=== PATIENT | male | born 1955 | race Caucasian/White ===

== ENCOUNTER → 2016-11-10 | Outpatient (CLI) | payer MEDICARE ==
[~2016-11-10] VITALS: Ht 172.7 cm; Wt 125.0 kg
[~2016-11-10] MED LIST: ADVIL200 MG PO; ANORO IH; CARBOPLATIN IV; CIPRO 500MG TA500 MG PO; DUREZOL 5 ML5 ML OP; ENBREL50 MG/ML SC; FLEXERIL 1010 MG/TAB PO; HCTZ 25MG TAB25 MG PO; LEVAQUIN 5500 MG/TA1 PO; LEXAPRO 10MG10 MG PO; LORTAB 5/500 501 TAB PO; NORCO 325 MG-51 TAB PO; PERCOCET 325 MG1 TA2 PO; PREDNISONE 5MG5 MG PO; PREDNISONE10 MG PO; PREDNISONE20 MG PO; PREVACID 30MG30 M1 PO; PRINIVIL10 MG PO; RT SPIRIVA18 MCG IH; SENOKOT S 50 MG1 TAB PO; TAXOL30 IV; TIZANIDINE2 MG PO; ULTRAM 50MG TAB50 MG PO; VOLTAREN1% TP; XOPENEX0.63 MG/3 IH; ZOFRAN ODT4 MG PO; ZOFRAN8 MG PO; [UNRECOGNIZED DRUG - OTHER] IV
[2016-11-10 12:14] VITALS: PULSE 61
[2016-11-10 13:37] VITALS: BP 105/59; PULSE 73
[2016-11-10 13:43] LABS: PLEURAL FLUID - PMN 0.5 % (0-25)
[2016-11-10 15:15] LABS: PLEURAL FLUID RIGHT SIDE; PLEURAL FLUID APPEARANCE HAZY; PLEURAL FLUID COLOR YELLOW
== END ==
LOC: COL.RAD 11:53
PROVIDERS: Internal Medicine
DX: J90 Pleural effusion, not elsewhere classified (principal)
CPT/HCPCS: 19804

== ENCOUNTER 2017-08-03 07:47 | Day surgery (SDC) | payer MEDICARE ==
[~2017-08-03] VITALS: Ht 172.7 cm; Wt 129.4 kg
[~2017-08-03 07:47] MED LIST changes: -DUREZOL 5 ML5 ML OP; +DUREZOL 5 ML5 ML OU; +XOPENEX HF0.045 MG/A IH; -XOPENEX0.63 MG/3 IH
[2017-08-03] MEDS ORDERED: ULTRAM 50MG TAB50 MG PO (08:10)
[2017-08-03] MEDS ORDERED: OMNIPRED 5 ML5 ML OU (08:13)
[2017-08-03] MEDS ORDERED: NORCO 325 MG-51 TAB PO (08:14)
[2017-08-03] MEDS ORDERED: CYCLOGYL 1%2 ML/BOT OU (08:20)
[2017-08-03] MEDS ORDERED: TYLENOL 8 HR PO (08:22)
[2017-08-03] MEDS ORDERED: DULCOLAX STOOL100 MG PO (08:23)
[2017-08-03 08:32] VITALS: BP 129/67; PULSE 80; TEMP 98.2
[2017-08-03 09:55] VITALS: BP 117/68; PULSE 70
[2017-08-03 10:00] VITALS: BP 108/71; PULSE 69
[2017-08-03 10:15] VITALS: BP 125/68; PULSE 64
[2017-08-03 10:30] VITALS: BP 116/67; PULSE 64
[2017-08-03 12:11] VITALS: BP 121/75; PULSE 67
== END 2017-08-03 10:45 | disposition home or self-care (01) ==
LOC: SDCO 07:47
DX: D12.5 Benign neoplasm of sigmoid colon (principal); K64.0 First degree hemorrhoids; K92.1 Melena; Z80.0 Family history of malignant neoplasm of digestive organs; I27.20 Pulmonary hypertension, unspecified; C34.91 Malignant neoplasm of unspecified part of right bronchus or lung; C91.11 Chronic lymphocytic leukemia of B-cell type in remission; J44.9 Chronic obstructive pulmonary disease, unspecified; K21.9 Gastro-esophageal reflux disease without esophagitis; I35.1 Nonrheumatic aortic (valve) insufficiency; Z88.0 Allergy status to penicillin; Z88.1 Allergy status to other antibiotic agents; G47.33 Obstructive sleep apnea (adult) (pediatric); D64.9 Anemia, unspecified
CPT/HCPCS: OP; J2704; J7120

== ENCOUNTER → 2018-03-02 | Outpatient (CLI) | payer MEDICARE ==
[~2018-03-02] MED LIST changes: +CYCLOGYL 1%2 ML/BOT OU; +DULCOLAX STOOL100 MG PO; +OMNIPRED 5 ML5 ML OU; +TYLENOL 8 HR PO
== END ==
LOC: COL.RAD 08:41
DX: R42 Dizziness and giddiness (principal)

== ENCOUNTER → 2018-03-21 | Outpatient (CLI) | payer MEDICARE ==
[~2018-03-21] VITALS: Ht 172.7 cm; Wt 129.6 kg
[~2018-03-21] MED LIST changes: +FOSAMAX 70MG TA70 MG PO
[2018-03-21 09:36] VITALS: BP 131/75; PULSE 88
== END ==
LOC: COL.RAD 09:18
DX: R42 Dizziness and giddiness (principal); Z53.8 Procedure and treatment not carried out for other reasons
CPT/HCPCS: J1100; J2405; J2704; J3010

== ENCOUNTER → 2018-03-22 | Outpatient (CLI) | payer MEDICARE | LOC: COL.PUL 10:57 | DX: R06.02 Shortness of breath (principal); M45.9 Ankylosing spondylitis of unspecified sites in spine; Z87.891 Personal history of nicotine dependence; Z85.118 Personal history of other malignant neoplasm of bronchus and lung ==

== ENCOUNTER → 2019-02-08 | Outpatient (CLI) | payer MEDICARE | LOC: COL.VAS 13:35 | DX: I27.0 Primary pulmonary hypertension (principal); I35.1 Nonrheumatic aortic (valve) insufficiency; I51.7 Cardiomegaly ==

== ENCOUNTER 2021-01-05 09:26 | Inpatient (IN) | payer MEDICARE ==
[2021-01-05] VITALS (368 sets, daily range): BP systolic 129–137; BP diastolic 70–86; PULSE 90–108; TEMP 99.1–100.4; O2SAT 76–100
[~2021-01-05] VITALS: Ht 172.7 cm; Wt 138.2 kg
[~2021-01-05 09:26] MED LIST changes: -PREDNISONE 5MG5 MG PO
[2021-01-05 10:19] LABS: COLLECTION METHOD CLEAN CATCH
[2021-01-05 10:25] LABS: BASO % 0.2 % (0.0-2.0); GRAN # 3.3 (1.4-6.5); GRAN % 64.6 % (42.2-75.2); HEMATOCRIT 38.7 % (42.0-52.0); HEMOGLOBIN 12.9 g/dl (13.5-18.0); LYMPH # 1.4 (1.2-3.4); LYMPH % 27.5 % (20.0-51.0); MEAN CELL VOLUME 101 fl (80.0-100.0); MEAN CORPUSCULAR HEMOGLOBIN 34 pg (27.0-31.0); MEAN CORPUSCULAR HGB CONC 33 g/dl (33.0-37.0); MEAN PLATELET VOLUME 10.4 fl (7.4-10.4); MONO # 0.4 (0.1-0.6); MONO % 7.1 % (1.7-9.3); PLATELET COUNT 102 K/mm3 (130-400); RED BLOOD COUNT 3.85 M/mm3 (4.20-5.60); REDCELL DISTRIBUTION WIDTH-CV 16.2 % (11.5-14.5)
[2021-01-05 10:27] LABS: MUCOUS Present /lpf; PH 5 (5-8); SQUAMOUS EPITHELIAL 0-2 /hpf; URINE APPEARANCE Hazy; URINE BACTERIA Rare /hpf; URINE BILIRUBIN Negative (NEGATIVE); URINE BLOOD Negative (NEGATIVE); URINE COLOR Yellow; URINE GLUCOSE Negative (NEGATIVE); URINE KETONE Negative (NEGATIVE); URINE LEUKOCYTE ESTERASE Negative (NEGATIVE); URINE NITRATE Negative (NEGATIVE); URINE PROTEIN(semi-quant) 1+ (NEGATIVE); URINE RBC 0-2 /hpf; URINE UROBILINOGEN Negative (NEGATIVE)
[2021-01-05 10:37] LABS: ALBUMIN 3.5 gm/dL (3.5-5.0); BILIRUBIN,TOTAL 1.2 mg/dL (0.0-1.0); CALCIUM 8.4 mg/dL (8.4-10.2); CREATININE, serum 0.94 (0.66-1.25); POTASSIUM 3.9 mmol/L (3.4-5.0); TOTAL PROTEIN 6.2 gm/dL (6.4-8.2)
[2021-01-05 11:03] LABS: ARTERIAL BLD GAS O2 SATURATION 97.7 % (92-100); ARTERIAL BLD GAS TCO2 CT 25.8; ARTERIAL BLOOD GAS BASE EXCESS 1.2 (-2-2); ARTERIAL BLOOD GAS HCO3 24.7 meq/L (22-26); ARTERIAL BLOOD GAS PCO2 35.8 mmHg (35-45); ARTERIAL BLOOD GAS PO2 99.8 mmHg (80-100); ARTERIAL BLOOD GAS pH 7.46 (7.35-7.45)
[2021-01-05 14:04] LABS: ARTERIAL BLD GAS O2 SATURATION 98.6 % (92-100); ARTERIAL BLD GAS TCO2 CT 24.2; ARTERIAL BLOOD GAS BASE EXCESS 0.1 (-2-2); ARTERIAL BLOOD GAS HCO3 23.2 meq/L (22-26); ARTERIAL BLOOD GAS PCO2 32.7 mmHg (35-45); ARTERIAL BLOOD GAS pH 7.47 (7.35-7.45)
[2021-01-05 14:05] LABS: ARTERIAL BLOOD GAS PO2 123.5 mmHg (80-100)
[2021-01-05 15:45] LABS: INR 1.5 (0.8-3.0); PROTHROMBIN TIME 16.2 SECONDS (9.7-12.8)
[2021-01-05 15:47] LABS: CREATININE, serum 0.93 (0.66-1.25); PARTIAL THROMBOPLASTIN TIME 28.6 SECONDS (26.0-37.0); POTASSIUM 3.7 mmol/L (3.4-5.0)
[2021-01-05 16:21] LABS: C-REACTIVE PROTEIN 14.9 mg/dL (0.0-0.9)
--- NOTE | 2021-01-05 18:19 | NUR ---
Pt. admitted to ICU Bed 8. Pt. alert and able to answer where he is and accurately state the month and year. The pt. is restless and frequently repositions, looking for his phone, etc. The pt. needs to be reoriented to remind him he needs to stay in bed to conserve energy for his breathing. The pt. was able to take his PO pills and be redirected. Bed alarm on and call light in reach for safety. Mere called on the phone, this RN reports she will call her back to give her an update. IV antibiotics and PO medications administered per order. Pt. denies pain, but reports changing positions and laying on his side makes him feel more comfortable. Because of this, this RN has frequently been rounding to make sure pt. has his belongings in reach and needs are assessed.
[2021-01-05] MEDS ORDERED: NEURONTIN300 MG/CAP (18:45)
[2021-01-05] MEDS ORDERED: FLOMAX 0.40.4 MG/CAP PO (18:47)
--- NOTE | 2021-01-05 18:48 | NUR ---
Pt.'s Kendal notified on the phone pt.'s update per pt. request. Kendal goes by Gayathri. Her number is [phone]. Medications reviewed. Will contact night provider to get new medications ordered.
--- NOTE | 2021-01-05 18:50 | NUR ---
Pt.'s Gayathri reports pt was vaccinated with the Moderna Vaccine on 08/02/20. The second dose of the vaccine was 08/02/20.
--- NOTE | 2021-01-05 18:54 | NUR ---
Pt. was noted to have a macerated/excoriated L and R groin area. Pt.'s reports they normallu use a diaper rash cream at home. MIGEL Julio notified about pt.'s medication list as well as cream. Nori reports she will put new orders in.
[2021-01-06] VITALS (73 sets, daily range): BP systolic 112–180; BP diastolic 56–74; PULSE 71–87; TEMP 97–98.3; O2SAT 82–100
--- NOTE | 2021-01-06 02:03 | NUR ---
PT TRANSFERRRED TO MEDICAL FLOOR VIA BED BY MEDICAL STAFF AND THIS NURSE AT 0200 HOURS. PT TRANSPORTED ON 12L OXYMASK, PT ABLE TO AMBULATE TO BED, ALL BELONGINGS REMAINED WITH PT.
--- NOTE | 2021-01-06 02:05 | NUR ---
Transferred from ICU to medical bed- Awake, alert, oriented x3, VSS, on 12 L/oxymask, sats 98%, resting, denies pain, Cordero to DD with blood tinged urine. IV fluids of NS at 50cc/hr, Tele on, call light in reach. Has rash/redness to groin. Bilateral lower ext edema. Lung sounds coarse,decreased in the bases.
--- NOTE | 2021-01-06 06:16 | NUR ---
Quiet night- VSS, has been sleeping soundly since coming up from ICU, 250cc ambur/tea colred urine emptied from Cordero at this time, o2 sats 97-99% on 12L/oxymask.
--- NOTE | 2021-01-06 09:12 | NUR ---
The patient is COVID positive. SW contacted the patient's , Kendal (ph#[phone]), to discuss discharge plan. The patient lives in [place] with his . Kendal reports that the patient needs assistance with his ADLs and that he has a cane, walker, and a portable concentrator from [facility]. She reports that she assists the patient with his ADLs. The patient's PCP is Dr. Agata Thompson and he receives his medications from [facility]. Kendal reports no difficulties obtaining his meds. Kendal reports that the patient does not have a DPOA-HC. Plan is to return home with his upon discharge. SW discussed home health services and it's benefits. Kendal reports that she would like to see how the patient does, before deciding on any services. The patient is currently on 8 liters of oxygen. SW to continue to follow. *Discharge plan: home with *
--- NOTE | 2021-01-06 09:19 | NUR ---
Pt assessment complete. Pt is sitting up attempting to eat breakfast, he is A/O x4. Pleasant with cares. Breathing is even and unlabored but has some dyspnea with talking and eating. Currently on 8L O2 via Hiflo cannula. Reports pain to R hip, worse with movement. PRN Motrin administered. Consuelo VILLALOBOS. IVF infusing without issues. No needs at this time. Call light within reach.
--- NOTE | 2021-01-06 19:28 | NUR ---
Pt had uneventful day, sat up in the recliner for most of the afternoon. Reports hip pain with movement. Dark urine present to pearce. Pt remained A/O and pleasant through the day. POC discussed with him. No needs at this time. Call light within reach.
--- NOTE | 2021-01-06 21:42 | NUR ---
Assessment completed, alert and oriented. BP is highr for patient just got up from the BR. Denies pain or SOB. Her is on 5L which is his baseline. His upper and lower extremities is swollen a little bit otherwise he is back to reclining chair comfortably sitting. He said that he have hx of sleep apnea and requesting if can get cpap for him. RT is at bedside and said that she will come back for bipap and will put him with that. Patient agreed the plan. Call light is within reach and will continue to follow.
[2021-01-07 04:30] VITALS: BP 135/65; PULSE 68; TEMP 97.7
[2021-01-07 08:03] VITALS: BP 138/59; PULSE 70; TEMP 97.5
[2021-01-07 12:14] LABS: COLLECTION METHOD IN
[2021-01-07 12:26] LABS: MUCOUS Present /lpf; PH 5 (5-8); SQUAMOUS EPITHELIAL None Seen /hpf; URINE APPEARANCE Cloudy; URINE BACTERIA None Seen /hpf; URINE BILIRUBIN Negative (NEGATIVE); URINE BLOOD 3+ (NEGATIVE); URINE COLOR Red; URINE GLUCOSE 3+ (NEGATIVE); URINE KETONE Negative (NEGATIVE); URINE LEUKOCYTE ESTERASE Negative (NEGATIVE); URINE NITRATE Negative (NEGATIVE); URINE PROTEIN(semi-quant) 2+ (NEGATIVE); URINE RBC >50 /hpf; URINE UROBILINOGEN Negative (NEGATIVE)
[2021-01-07 12:57] VITALS: BP 161/85; PULSE 74; TEMP 98.5
[2021-01-07 16:44] VITALS: BP 145/58; PULSE 74; TEMP 975
--- NOTE | 2021-01-07 19:36 | NUR ---
Pt had uneventful day, sat up in the recliner for a majority of it. He remained A/O x4, pleasant and cooperative with cares. Breathing improved, currently on 5L O2 via NC. Consuelo DD, urine has become more bloody, Dr. Jolly aware. INT to left FA removed d/t infiltration. Has a patent R hand INT. No needs at this time. Call light within reach.
[2021-01-07 19:52] VITALS: BP 147/68; PULSE 67; TEMP 97.5
--- NOTE | 2021-01-07 23:23 | NUR ---
ALERT AND OX3. 5LITER N/C. DENIES SOA EXCEPT WHEN AMBULATING. BOOGIE CATH WITH BLOODY DRAINAGE. RT HAND IV FLUSHED. PM MEDS GIVEN. POC DISCUSSED. SETTING UP IN RECLINER, WILL CALL OUT WHEN GOING TO BED. CALL LIGHT WI REACH. NEEDS MET.
[2021-01-07 23:25] VITALS: BP 149/65; PULSE 65; TEMP 97.7
[2021-01-08 05:00] VITALS: BP 146/71; PULSE 80
--- NOTE | 2021-01-08 05:28 | NUR ---
SLEPT THROUGH THE NIGHT WITHOUT INCIDENT. NEEDS MET.
[2021-01-08 08:16] LABS: GRAN # 3.6 (1.4-6.5); GRAN % 71.7 % (42.2-75.2); HEMATOCRIT 38.1 % (42.0-52.0); HEMOGLOBIN 12.5 g/dl (13.5-18.0); LYMPH # 1.1 (1.2-3.4); LYMPH % 22.6 % (20.0-51.0); MEAN CELL VOLUME 101 fl (80.0-100.0); MEAN CORPUSCULAR HEMOGLOBIN 33 pg (27.0-31.0); MEAN CORPUSCULAR HGB CONC 33 g/dl (33.0-37.0); MEAN PLATELET VOLUME 10.1 fl (7.4-10.4); MONO # 0.3 (0.1-0.6); MONO % 5.3 % (1.7-9.3); PLATELET COUNT 106 K/mm3 (130-400); RED BLOOD COUNT 3.79 M/mm3 (4.20-5.60); REDCELL DISTRIBUTION WIDTH-CV 15.7 % (11.5-14.5)
[2021-01-08 08:22] VITALS: BP 136/62; PULSE 66; TEMP 97.9
[2021-01-08 12:28] VITALS: BP 120/68; PULSE 72; TEMP 97.6
[2021-01-08 16:21] VITALS: BP 134/63; PULSE 73; TEMP 98.6
--- NOTE | 2021-01-08 18:55 | NUR ---
PT HAS BEEN TITRATED DOWN TO 1L NC, HOWEVER WITH AMBULATION HE DESATS SIGNIFICANTLY. REPORT GIVEN TO PATRICIO QUAN TO TURN O2 UP TO 3L FOR AMBULATION AND THEN BACK DOWN TO 1L WHEN SEDENTARY. NO FURTHER CONCERNS.
[2021-01-08 21:10] VITALS: BP 136/60; PULSE 94; TEMP 98
--- NOTE | 2021-01-08 23:09 | NUR ---
ALERT ANDOX3. FEELING BETTER TODAY. O2 DOWN TO 1 LITER UNLESS UP AMBULATING NEEDING 2LITER TO RECOVER. DENIES PAIN AT SHIFT ASSESS OR MILD JUST HAD TYLENOL. BOOGIE INTACT TO DD. BLOODY TEA COLORED DRAINAGE. PM MEDS GIVEN. POC DISCUSSED.
[2021-01-09 00:35] VITALS: BP 133/69; PULSE 77; TEMP 97.7
[2021-01-09 04:49] VITALS: BP 134/52; PULSE 70; TEMP 98
--- NOTE | 2021-01-09 05:41 | NUR ---
RESTED THROUGH THE NIGHT WITHOUT INCIDENT. UP IN RECLINER ABOUT 430 THIS AM. CATH LEAKING A LITTE AROUND TIP WHEN PT COUGHING HARD. TYL GIVEN FOR BACK PAIN THIS AM. FRESH COFFEE, NEEDS MET.
--- NOTE | 2021-01-09 06:54 | NUR ---
PT UP IN RECLINER AT THIS TIME. DENIES ANY CURRENT NEEDS. BREAKFAST ORDERED.
[2021-01-09 08:36] VITALS: BP 129/56; PULSE 66; TEMP 97.9
[2021-01-09] MEDS ORDERED: ALA-CORT1% TP (09:21)
[2021-01-09] MEDS ORDERED: DECADRON 4MG TAB4 MG PO (09:24)
[2021-01-09] MEDS ORDERED: TYLENOL 325MG325 MG PO (09:25)
[2021-01-09] MEDS ORDERED: PROAIR HFA0.09 MG/AC IH (09:26)
[2021-01-09] MEDS ORDERED: RT Albuterol HFA MDI IH (09:26)
[2021-01-09] MEDS ORDERED: OXYGEN (09:34)
--- NOTE | 2021-01-09 09:52 | NUR ---
RT notified SW that the patient qualified for 3 liters of oxygen and that the patient informed her that he already has a portable concentrator from [facility]. SW contacted the patient's , Kendal, to update on the above. Kendal confirms that the patient already has a portable concentrator from [facility] and that she will bring it up here for the patient to transport home on. She would like to get the rest of the patient's equipment from [facility]. SW read the IM form outloud to Kendal. Kendal verbalized understanding and gave SW approval to sign the form on her behalf. SW contacted and faxed and emailed the patient's information to Jenniffer at [facility]. Jenniffer confirms that the patient is a client of theirs. SW informed Jenniffer that the patient has a portable concentrator to get home on. SW updated the patient's RN on the above. The patient is to discharge back home with his today, 01/09. No additional needs at this time.
[2021-01-09] MEDS ORDERED: PREDNISONE 5MG5 MG PO (12:43)
--- NOTE | 2021-01-09 13:13 | NUR ---
PT IS SITTING IN RECLINER, BOOGIE HAS BEEN REMOVED. PT HAS VOIDED 150ML SINCE REMOVAL LESS THAN AN HOUR AGO. PT STATES IT HASNT BEEN DIFFICULT AT ALL. THERE IS STILL SOME HEMATURIA, HOWEVER IT SEEMS TO BE REDUCING, AND COLOR IS CHANGING BACK TO THE TEA COLORED URINE. PT IS DRESSED AND READY FOR DISCHARGE, PATIENT'S WILL BE TAKING HIM HOME, AND WILL CALL WHEN HE IS READY TO GO.
--- NOTE | 2021-01-13 16:39 | NUR ---
fiber glass worker contacted spouse, Kendal [phone], and offered emotional support. Kendal states patient does not have advance directives and she was able to speak to him today via telephone. Patient's primary care provider is Dr Guerrero Thompson. Worker advised that we will stay in touch with her and she verbalized comfort that she can talk to nurses daily.
== END 2021-01-09 13:55 | disposition home or self-care (01) | DRG 177 ==
LOC: COL.ER 09:26 → MEDICAL 12:06 → ICU 15:04 → MEDICAL 01-06 01:15
PROVIDERS: Family Medicine; ADMIT Internal Medicine
PROC: XW033E5 Introduction of Remdesivir Anti-infective into Peripheral Vein, Percutaneous Approach, New Technology Group 5 (ICD-10-PCS; principal; 2021-01-07)
DX: U07.1 COVID-19 (principal); J12.82 Pneumonia due to coronavirus disease 2019; J96.01 Acute respiratory failure with hypoxia; Z68.42 Body mass index [BMI] 45.0-49.9, adult; K21.9 Gastro-esophageal reflux disease without esophagitis; R31.9 Hematuria, unspecified; I10 Essential (primary) hypertension; F41.1 Generalized anxiety disorder; M45.9 Ankylosing spondylitis of unspecified sites in spine; M81.0 Age-related osteoporosis without current pathological fracture; T38.0X5A Adverse effect of glucocorticoids and synthetic analogues, initial encounter; Z85.118 Personal history of other malignant neoplasm of bronchus and lung; E66.9 Obesity, unspecified; Z87.891 Personal history of nicotine dependence
CPT/HCPCS: 99222-AI; 99232-AI; 99239; J0456; J0696; J1200; J1630; J1650; J2060; J2250; J7030; J7050; J7120; J7512; J8540; Q9967

== ENCOUNTER 2021-01-12 10:01 | Inpatient (IN) | payer MEDICARE ==
[2021-01-12] VITALS (334 sets, daily range): BP systolic 110–127; BP diastolic 56–68; PULSE 65–94; TEMP 97.8–100; O2SAT 85–100
[~2021-01-12] VITALS: Ht 172.7 cm; Wt 135.8 kg
[~2021-01-12 10:01] MED LIST changes: +ALA-CORT1% TP; +DECADRON 4MG TAB4 MG PO; +FLOMAX 0.40.4 MG/CAP PO; +NEURONTIN300 MG/CAP; +OXYGEN; +PREDNISONE 5MG5 MG PO; +PROAIR HFA0.09 MG/AC IH; +RT Albuterol HFA MDI IH; +TYLENOL 325MG325 MG PO
[2021-01-12 10:18] LABS: ARTERIAL BLD GAS O2 SATURATION 83.3 % (92-100); ARTERIAL BLD GAS TCO2 CT 25.2; ARTERIAL BLOOD GAS BASE EXCESS -2.5 (-2-2); ARTERIAL BLOOD GAS HCO3 23.8 meq/L (22-26); ARTERIAL BLOOD GAS PCO2 46.2 mmHg (35-45); ARTERIAL BLOOD GAS PO2 49.1 mmHg (80-100); ARTERIAL BLOOD GAS pH 7.33 (7.35-7.45)
[2021-01-12 10:21] LABS: HEMATOCRIT 46.1 % (42.0-52.0); HEMOGLOBIN 14.9 g/dl (13.5-18.0); MEAN CELL VOLUME 102 fl (80.0-100.0); MEAN CORPUSCULAR HEMOGLOBIN 33 pg (27.0-31.0); MEAN CORPUSCULAR HGB CONC 32 g/dl (33.0-37.0); MEAN PLATELET VOLUME 10.7 fl (7.4-10.4); PLATELET COUNT 319 K/mm3 (130-400); RED BLOOD COUNT 4.51 M/mm3 (4.20-5.60); REDCELL DISTRIBUTION WIDTH-CV 16.2 % (11.5-14.5)
[2021-01-12 10:33] LABS: ALANINE AMINOTRANSFERASE 70 U/L (4-49); ALBUMIN 3.9 gm/dL (3.5-5.0); ALKALINE PHOSPHATASE 65 U/L (50-136); ANION GAP 15 mmol/L (7-16); AST,SGOT 51 U/L (15-37); BILIRUBIN,TOTAL 1.4 mg/dL (0.0-1.0); BLOOD UREA NITROGEN 27 mg/dL (9-20); CALCIUM 8.7 mg/dL (8.4-10.2); CARBON DIOXIDE 25 mmol/L (22-30); CHLORIDE 95 mmol/L (98-107); CREATININE, serum 0.88 (0.66-1.25); GLUCOSE 235 mg/dL (74-106); POTASSIUM 3.9 mmol/L (3.4-5.0); SODIUM 136 mmol/L (137-145); TOTAL PROTEIN 6.7 gm/dL (6.4-8.2)
[2021-01-12 10:46] LABS: TROPONIN-I < 0.012 ng/mL (0.000-0.035)
[2021-01-12 11:03] LABS: INR 1.2 (0.8-3.0); PROTHROMBIN TIME 13.6 SECONDS (9.7-12.8)
[2021-01-12 11:12] LABS: BAND 1 % (0-10); LYMPHOCYTE 24 % (20.0-51.0); NEUTROPHILS 70 % (42.0-75.2); NUCLEATED RED BLOOD CELL 1 (0-6)
[2021-01-12 11:13] LABS: ANISOCYTOSIS 1+; HYPOCHROMIA 1+; PLATELET ESTIMATE NORMAL (NORMAL)
[2021-01-12 11:35] LABS: COLLECTION METHOD CLEAN CATCH
--- NOTE | 2021-01-12 11:40 | NUR ---
PT ADMITTED FROM ED WITH RESPIRATORY FAILURE D/T COVID. PT IS ORIENTED BUT SLEEPY. PT TRANSFERED TO BED FROM [facility]. PT ON BIPAP AT 100%. PT IS ST ON TELE. BP WNL. PT HAS SLIGHT TEMP OF 100. VANC RUNNING. LABS DRAWN. PT STATES HE FEELS BETTER. BEDSIDE.
[2021-01-12 11:48] LABS: MUCOUS Present /lpf; PH 5 (5-8); SQUAMOUS EPITHELIAL 0-2 /hpf; URINE APPEARANCE Hazy; URINE BACTERIA Rare /hpf; URINE BILIRUBIN Negative (NEGATIVE); URINE BLOOD 3+ (NEGATIVE); URINE COLOR Yellow; URINE GLUCOSE 2+ (NEGATIVE); URINE KETONE Negative (NEGATIVE); URINE LEUKOCYTE ESTERASE Negative (NEGATIVE); URINE NITRATE Negative (NEGATIVE); URINE PROTEIN(semi-quant) 1+ (NEGATIVE); URINE RBC >50 /hpf; URINE UROBILINOGEN Negative (NEGATIVE)
--- NOTE | 2021-01-12 12:36 | NUR ---
NOTIFIED OF D-DIMER GREATER THAN 3000.
--- NOTE | 2021-01-12 16:02 | NUR ---
PT APPEARS ANXIOUS AND REQUESTING TO MOVE MASK. PT REPOSITIONED AND EDUCATED ON IMPORTANCE OF WEARING HIS BIPAP. CALLED REGARDING ANXIETY AND INSTRUCTED TO CALL . CALLED AND ORDER RECEIVED FOR PRECEDEX DRIP. WILL CONTINUE TO [facility]. T
[2021-01-12 19:14] LABS: ARTERIAL BLD GAS TCO2 CT 26.7; ARTERIAL BLOOD GAS BASE EXCESS 1.1 (-2-2); ARTERIAL BLOOD GAS HCO3 25.5 meq/L (22-26); ARTERIAL BLOOD GAS PCO2 39.5 mmHg (35-45); ARTERIAL BLOOD GAS pH 7.43 (7.35-7.45)
--- NOTE | 2021-01-12 21:14 | NUR ---
Vancomycin Initial Dosing Pharmacy Note Ordering provider: Silvestre Jaffe MD Indication/duration: PNA W/RECENT HOSPITALIZATION / 7 DAYS Trough goal: 15-20 HX: NO DOSING HX IDENTIFIED BMI: 44.2 WT: 131.8 KG ADJBW: 94 KG SCR: 0.88 ADJBW ESTCRCL ~ 110 ML/MIN T 1/2 ~ 7 H T MAX: 100 WBC: 30.7 LA: 8.7-> 1.9 CRP: 7.1 MICRO IN PROCESS CXR REPORTING BILATERAL AIRSPACE DISEASE WORSENED SINCE LAST IMAGING PT RECEIVED 2GM LOADING DOSE X1. WILL START PT ON 1.5 GM Q12H FOR MAINTENANCE. WILL FOLLOW CLOSELY PT UNLIKELY TO FOLLOW POPULAITION BASED KINETICS AND AT RISK FOR ACCUMULATION 2/2 ELEVATED BMI. DUE TO PT'S AGE, WILL START ON Q12H REGIMEN UNLESS PT PROVES THAT THEY REQUIRE Q8H DOSING. WILL FOLLOW RENAL FUNCTION, LEVELS, MICRO, AND CARE PLAN FOR NEED TO ADJUST THERAPY. THANK YOU FOR THIS DOSING CONSULT!
[2021-01-13] VITALS (660 sets, daily range): BP systolic 105–179; BP diastolic 66–86; PULSE 50–103; TEMP 97.5–98.9; O2SAT 63–100
[2021-01-13 05:46] LABS: MEAN CELL VOLUME 101 fl (80.0-100.0); MEAN CORPUSCULAR HGB CONC 33 g/dl (33.0-37.0); RED BLOOD COUNT 3.44 M/mm3 (4.20-5.60); REDCELL DISTRIBUTION WIDTH-CV 15.9 % (11.5-14.5)
[2021-01-13 05:54] LABS: HEMATOCRIT 34.6 % (42.0-52.0); HEMOGLOBIN 11.3 g/dl (13.5-18.0); MEAN CORPUSCULAR HEMOGLOBIN 33 pg (27.0-31.0); PLATELET COUNT 100 K/mm3 (130-400)
[2021-01-13 06:01] LABS: ALBUMIN 3.1 gm/dL (3.5-5.0); CALCIUM 8.1 mg/dL (8.4-10.2); CREATININE, serum 0.98 (0.66-1.25); POTASSIUM 4.8 mmol/L (3.4-5.0); TOTAL PROTEIN 5.4 gm/dL (6.4-8.2)
[2021-01-13 06:19] LABS: C-REACTIVE PROTEIN 17.7 mg/dL (0.0-0.9)
[2021-01-13 06:26] LABS: ARTERIAL BLD GAS O2 SATURATION 96.8 % (92-100); ARTERIAL BLD GAS TCO2 CT 25.5; ARTERIAL BLOOD GAS BASE EXCESS -0.4 (-2-2); ARTERIAL BLOOD GAS HCO3 24.3 meq/L (22-26); ARTERIAL BLOOD GAS PCO2 40.1 mmHg (35-45); ARTERIAL BLOOD GAS PO2 88.7 mmHg (80-100)
[2021-01-13 06:27] LABS: HYPOCHROMIA 1+; LYMPHOCYTE 17 % (20.0-51.0); METAMYELOCYTE 3 % (0-0); NEUTROPHILS 77 % (42.0-75.2); POIKILOCYTOSIS 1+
[2021-01-13 06:28] LABS: ANISOCYTOSIS 1+; OVALOCYTES 1+; PLATELET ESTIMATE DECREASED (NORMAL)
[2021-01-13 08:51] LABS: GRAN # 4.5 (1.4-6.5); GRAN % 80.2 % (42.2-75.2); HEMOGLOBIN 11.6 g/dl (13.5-18.0); LYMPH # 0.8 (1.2-3.4); LYMPH % 13.4 % (20.0-51.0); MEAN CELL VOLUME 103 fl (80.0-100.0); MEAN CORPUSCULAR HEMOGLOBIN 33 pg (27.0-31.0); MEAN CORPUSCULAR HGB CONC 32 g/dl (33.0-37.0); MONO # 0.3 (0.1-0.6); PLATELET COUNT 106 K/mm3 (130-400); REDCELL DISTRIBUTION WIDTH-CV 15.8 % (11.5-14.5)
[2021-01-13 08:52] LABS: HEMATOCRIT 35.9 % (42.0-52.0)
--- NOTE | 2021-01-13 10:09 | NUR ---
Updated hospitalist on patient status. Ok to eat if receive the ok per Dr. Silverio.
--- NOTE | 2021-01-13 11:09 | NUR ---
Updated family via telephone; all questions and concerns addressed at this time.
--- NOTE | 2021-01-13 13:25 | NUR ---
RT at bedside to attempt to switch from BIPAP to AirVO; 02 mikaly mid 90's on 80%. Will continue to monitor how he tolerates the Airvo.
--- NOTE | 2021-01-13 14:00 | NUR ---
Discussed plan for a CT chest to check for a PE. Patient immediately became upset and yelled that he would absolutely not go for a CT due to his spondylosis ankylosis and inibility to lay flat without extreme pain. Hospitalist notified.
--- NOTE | 2021-01-13 15:20 | NUR ---
Patient heard yelling out loud from room. Upon entering observed patient pulling on and off his BIPAP. Explained to patient the importance of keeping on the mask as he desaturates very quickly while off. Will attempt to place on airvo for a break if tolerated.
--- NOTE | 2021-01-13 16:32 | NUR ---
Patient extremely anxious; screaming outloud and pulled of BIPAP. Hospitalist outside of room and witnessed patient screaming. Can give ativan X1 for anxiety.
--- NOTE | 2021-01-13 16:45 | NUR ---
Patient calmed down for only a few minutes then became extremely agitated again. Screaming at staff and pulling off BIPAP. Refusing to let this nurse put on the BIPAP. Attempted to place AirVO and patient immediately pulled off airvo. Required two staff to calm patient. Hospitalist notified and placed order for haldol if needed.
--- NOTE | 2021-01-13 16:45 | NUR ---
Patient was recently discharged from the hospital to home with continued oxygen. Patient lives with spouse. cooler room worker contacted patient's spouse, Kendal [phone] and offered support. Patient does not have any advance directives and spouse verbalizes understanding that she is patient's next of kin. Spouse states she was able to speak to patient via telephone today. Patient's primary care provider is Dr Guerrero Thompson. Spouse verbalizes comfort that she can speak with nurses daily and receive updates. Case management will continue to follow and assist with securing post acute hospital plans.
[2021-01-13 21:02] LABS: ARTERIAL BLD GAS O2 SATURATION 96.1 % (92-100); ARTERIAL BLD GAS TCO2 CT 24.6; ARTERIAL BLOOD GAS BASE EXCESS -0.7 (-2-2); ARTERIAL BLOOD GAS HCO3 23.5 meq/L (22-26); ARTERIAL BLOOD GAS PCO2 37.1 mmHg (35-45); ARTERIAL BLOOD GAS PO2 81.9 mmHg (80-100); ARTERIAL BLOOD GAS pH 7.42 (7.35-7.45)
[2021-01-14] VITALS (731 sets, daily range): BP systolic 108–182; BP diastolic 56–86; PULSE 54–119; TEMP 98–99.2; O2SAT 76–97
[2021-01-14 05:35] LABS: ARTERIAL BLD GAS O2 SATURATION 88.9 % (92-100); ARTERIAL BLD GAS TCO2 CT 23.1; ARTERIAL BLOOD GAS BASE EXCESS -4.2 (-2-2); ARTERIAL BLOOD GAS HCO3 21.8 meq/L (22-26); ARTERIAL BLOOD GAS PCO2 43.4 mmHg (35-45); ARTERIAL BLOOD GAS PO2 57.9 mmHg (80-100); ARTERIAL BLOOD GAS pH 7.32 (7.35-7.45)
--- NOTE | 2021-01-14 06:21 | NUR ---
PATIENT EXHIBITED ANXIETY THROUGHOUT ENTIRE NIGHT AND REPORTEDLY DURING PRIOR DAY SHIFT WELL. PATIENT MAXED ON PRECEDEX AT 1.5 MCG/KG/HR UNTIL INTUBATION. PRN ATIVAN AND HALDOL GIVEN IN ATTEMPT TO CALM PATIENT. ALSO ASSISTED PATIENT IN TURNING AND PARTIAL BATHING. MORPHINE ATTEMPTED IN CASE OF PT IN PAIN BUT UNABLE TO EXPRESS APPROPRIATELY. DESPITE ALL OF THESE INTERVENTIONS, PATIENT CONTINUED TO YELL AND PULL AT BIPAP. PT PULLED BIPAP COMPLETELY OFF FACE MULTIPLE TIMES DESPITE CONTINUOUS TEACHING OF IMPORTANCE OF LEAVING BIPAP ON TO OXYGENATE AND AVOID INTUBATION. EVENTUALLY PT BECAME PARTIALLY DISORIENTED AND NOT REDIRECTABLE. AFTER ATTEMPTING MANY OTHER INTERVENTIONS, HOSPITALIST AND ECARE RECCOMMENDED INTUBATION. ANESTHESIA CALLED AND UPDATED. EXPLAINED HX OF SNKYLOSING SPONDYLITIS AND HX OF DIFFICULT INTUBATION. , NICOLE UPDATED EARLY IN SHIFT AND PRIOR TO INTUBATION. SHE WAS ABLE TO VISIT PATIENT AND THEY AGREED TO GO AHEAD WITH INTUBATION AND FULL CODE STATUS. CL PLACED AFTER INTUBATION. PROCEDURE NOTE TO FOLLOW
[2021-01-14 06:30] LABS: BASO % 0.1 % (0.0-2.0); GRAN # 11.3 (1.4-6.5); GRAN % 77.3 % (42.2-75.2); HEMATOCRIT 39.1 % (42.0-52.0); HEMOGLOBIN 12.7 g/dl (13.5-18.0); LYMPH # 2.6 (1.2-3.4); LYMPH % 17.5 % (20.0-51.0); MEAN CELL VOLUME 103 fl (80.0-100.0); MEAN CORPUSCULAR HEMOGLOBIN 34 pg (27.0-31.0); MEAN CORPUSCULAR HGB CONC 33 g/dl (33.0-37.0); MEAN PLATELET VOLUME 10.9 fl (7.4-10.4); MONO # 0.6 (0.1-0.6); MONO % 3.9 % (1.7-9.3); PLATELET COUNT 164 K/mm3 (130-400); RED BLOOD COUNT 3.78 M/mm3 (4.20-5.60); REDCELL DISTRIBUTION WIDTH-CV 16.1 % (11.5-14.5)
[2021-01-14 06:36] LABS: ALBUMIN 3.2 gm/dL (3.5-5.0); BILIRUBIN,TOTAL 1.4 mg/dL (0.0-1.0); CALCIUM 7.9 mg/dL (8.4-10.2); CREATININE, serum 0.93 (0.66-1.25); POTASSIUM 4.6 mmol/L (3.4-5.0); TOTAL PROTEIN 5.5 gm/dL (6.4-8.2)
--- NOTE | 2021-01-14 06:44 | NUR ---
SIGNIFICANT EVENT NOTE: INTUBATION/CL PLACEMENT: 0304 ARRIVED 0310 ANESTHESIA ARRIVED [address] BROWN CALLED FOR CL PLACEMENT 0325 2MG VERSED GIVEN 326 150 MG PROPOFOL GIVEN 032 7ML SUCC GIVEN 032 ETT DOWN PLACED AT 24 AT TEETH. 8.0 TUBE SETTINGS: VT 480, PEEP 20, FIO2 100%, RR 22 0340 14 F OG AT 59 AT TEETH 0348 500 ML NS BOLUS STARTED 0357 KEVIN ARRIVED [address] ALL 3 LUMENS DRAW BACK AND FLUSH. PT TOLERATED PROCEDURE WELL AND VSS WITH EXCEPTION OF LEVOPHED STARTED AT MINIMUM RATE (0.02 MCG/KG/MIN).
[2021-01-14 06:50] LABS: C-REACTIVE PROTEIN 17.1 mg/dL (0.0-0.9)
--- NOTE | 2021-01-14 07:38 | NUR ---
RECENT INTUBATION. NOT INDICATED FOR SEDATION VACATION. PT PURPOSEFUL, EQUAL PUPILS, GAG PRESENT AND OVERBREATHES VENT.
--- NOTE | 2021-01-14 08:00 | NUR ---
Tolerating ventilator well; VS stable. Will continue to monitor.
[2021-01-14 09:43] LABS: ARTERIAL BLD GAS TCO2 CT 26.1; ARTERIAL BLOOD GAS BASE EXCESS -1.2 (-2-2); ARTERIAL BLOOD GAS HCO3 24.7 meq/L (22-26); ARTERIAL BLOOD GAS PCO2 45.9 mmHg (35-45); ARTERIAL BLOOD GAS PO2 59.7 mmHg (80-100); ARTERIAL BLOOD GAS pH 7.35 (7.35-7.45)
--- NOTE | 2021-01-14 14:15 | NUR ---
Hospitalist notified of patient's lack of urine produced over several hours. Had stopped IV fluids this morning. Will Re-start NS at 75/hr.
--- NOTE | 2021-01-14 16:00 | NUR ---
Hospitalist notified that patient's heart rate has steadily increased from the 70's to the 100's. No fevers noted. Hospitalist had been notified that the catheter was not draining urine however, pearce catheter was flushed and a clot of sediment was released and 340 ml was then drained from the catheter. Hospitalist updated about urine output at this time. After updating Dr. Padilla this nurse also received permission to cancel chest CT per hospitalist and Dr. Silverio.
--- NOTE | 2021-01-14 19:30 | NUR ---
Notified by Lab that blood culture came back positive for staph; mikaly on 3 antibiotics. Hospitalist notified no changes made to antibiotic regimen.
--- NOTE | 2021-01-14 22:20 | NUR ---
DISCUSSED WITH MIGEL BUSCH DECREASED OUTPUT, PATIENT RESTARTED ON FLUIDS PREVIOUS SHIFT, WILL CONTINUE TO MONITOR
[2021-01-15] VITALS (740 sets, daily range): BP systolic 87–142; BP diastolic 54–74; PULSE 104–116; TEMP 98–99.3; O2SAT 82–100
--- NOTE | 2021-01-15 04:35 | NUR ---
0200 INCREASED TUBE FEEDINGS TO 20ML/HR
[2021-01-15 04:51] LABS: ARTERIAL BLD GAS O2 SATURATION 93.6 % (92-100); ARTERIAL BLD GAS TCO2 CT 23.9; ARTERIAL BLOOD GAS BASE EXCESS -10.8 (-2-2); ARTERIAL BLOOD GAS HCO3 21.4 meq/L (22-26); ARTERIAL BLOOD GAS PO2 72.1 mmHg (80-100)
[2021-01-15 04:52] LABS: ARTERIAL BLOOD GAS PCO2 80.5 mmHg (35-45); ARTERIAL BLOOD GAS pH 7.04 (7.35-7.45)
[2021-01-15 06:01] LABS: HEMATOCRIT 41.9 % (42.0-52.0); HEMOGLOBIN 13.1 g/dl (13.5-18.0); MEAN CORPUSCULAR HEMOGLOBIN 34 pg (27.0-31.0); MEAN CORPUSCULAR HGB CONC 31 g/dl (33.0-37.0); MEAN PLATELET VOLUME 10.5 fl (7.4-10.4); PLATELET COUNT 197 K/mm3 (130-400); RED BLOOD COUNT 3.89 M/mm3 (4.20-5.60); REDCELL DISTRIBUTION WIDTH-CV 17.3 % (11.5-14.5)
[2021-01-15 06:04] LABS: MEAN CELL VOLUME 108 fl (80.0-100.0)
[2021-01-15 06:11] LABS: ALBUMIN 3.2 gm/dL (3.5-5.0); BILIRUBIN,TOTAL 1.4 mg/dL (0.0-1.0); CALCIUM 7.4 mg/dL (8.4-10.2); CREATININE, serum 2.81 (0.66-1.25); TOTAL PROTEIN 5.7 gm/dL (6.4-8.2)
[2021-01-15 06:18] LABS: ANISOCYTOSIS 1+; BAND 1 % (0-10); LYMPHOCYTE 18 % (20.0-51.0); METAMYELOCYTE 1 % (0-0); NEUTROPHILS 76 % (42.0-75.2); OVALOCYTES 1+; PLATELET ESTIMATE NORMAL (NORMAL); POIKILOCYTOSIS 1+
[2021-01-15 06:19] LABS: POLYCHROMASIA 1+
[2021-01-15 06:21] LABS: POTASSIUM 6.3 mmol/L (3.4-5.0)
[2021-01-15 06:33] LABS: C-REACTIVE PROTEIN 25.7 mg/dL (0.0-0.9)
--- NOTE | 2021-01-15 07:46 | NUR ---
[address] GARCIA AND REPORTED DECREASED URINE OUTPUT CRITICAL LABS OF POTASSIUM 6.3 AND WBC OF 28.4, NEW ORDERS FOR 500ML NS BOLUS AND REPEAT K LAB 2 HOURS AFTER BOLUS COMPLETE
--- NOTE | 2021-01-15 11:12 | NUR ---
Family meeting held after Dr Padilla had phoned and asked her to come to hospital due to King's worsening condition. Dr Silverio and Dr Padilla spoke with Kendal and Gallo with Mehreen Chaney RN and Anai Julien RN present. Kendal states she wants h im to recover and is not giving up on him. Gallo wants him to survive but doesn't want to put him through a lot of treatments if it is not going to help. After discussion, we will continue his current care and management but will change his code status to DNR per his 's decision. Family was allowed to visit for 1 hour after this meeting using appropriate PPE and then will leave the building. Support provided to .
[2021-01-15 13:38] LABS: CALCIUM 6.9 mg/dL (8.4-10.2); CREATININE, serum 3.37 (0.66-1.25)
[2021-01-15 14:00] LABS: POTASSIUM 5.9 mmol/L (3.4-5.0)
[2021-01-15 15:40] LABS: CALCIUM 7.2 mg/dL (8.4-10.2); CREATININE, serum 3.59 (0.66-1.25)
[2021-01-15 15:42] LABS: POTASSIUM 6.1 mmol/L (3.4-5.0)
[2021-01-15 18:51] LABS: CREATININE, serum 3.96 (0.66-1.25)
[2021-01-15 19:01] LABS: POTASSIUM 6.5 mmol/L (3.4-5.0)
--- NOTE | 2021-01-15 19:05 | NUR ---
Received report from PATRICIO Powell, and PATRICIO Mares.
--- NOTE | 2021-01-15 19:48 | NUR ---
REPORT GIVEN TO PATRICIO SPAIN
--- NOTE | 2021-01-15 20:00 | NUR ---
Patient resting quietly in bed. Tolerating ventilator well, however, O2 saturation 89-91% on 100% FiO2. Oral care, including oral and ET tube suctioning, performed with no improvement in saturation. RT aware. Patient tachycardic 110-117. All other vitals within normal limits. Patient is opening eyes spontaneously but is not alert nor is he following verbal commands. He continues to receive fentanyl, propofol, and levophed drips. Per report received from PATRICIO Powell, patient has had a total of approximately 10mL of urine output today. Scant dark reddish-brown urine noted in pearce catheter tubing. Patient repositioned. Bed in lowest position, all alarms on. No further needs noted.
[2021-01-15 20:19] LABS: CALCIUM 7.1 mg/dL (8.4-10.2); CREATININE, serum 4.01 (0.66-1.25)
[2021-01-15 20:29] LABS: POTASSIUM 6.3 mmol/L (3.4-5.0)
[2021-01-15 22:10] LABS: CALCIUM 7.1 mg/dL (8.4-10.2); CREATININE, serum 4.12 (0.66-1.25)
[2021-01-15 22:26] LABS: POTASSIUM 6.2 mmol/L (3.4-5.0)
[2021-01-16] VITALS (117 sets, daily range): BP systolic 77–178; BP diastolic 35–108; PULSE 113–135; TEMP 99.2–101.4; O2SAT 89–96
--- NOTE | 2021-01-16 01:30 | NUR ---
Patient's , Gayathri, updated.
[2021-01-16 04:21] LABS: ARTERIAL BLD GAS O2 SATURATION 89.2 % (92-100); ARTERIAL BLD GAS TCO2 CT 20.1; ARTERIAL BLOOD GAS BASE EXCESS -13.9 (-2-2); ARTERIAL BLOOD GAS HCO3 18.1 meq/L (22-26); ARTERIAL BLOOD GAS PO2 61.2 mmHg (80-100)
[2021-01-16 04:23] LABS: ARTERIAL BLOOD GAS PCO2 65.5 mmHg (35-45); ARTERIAL BLOOD GAS pH 7.06 (7.35-7.45)
[2021-01-16 04:40] LABS: BASO # 0.1 (0.0-0.2); BASO % 0.2 % (0.0-2.0); GRAN # 18.4 (1.4-6.5); GRAN % 73.4 % (42.2-75.2); HEMATOCRIT 41.1 % (42.0-52.0); HEMOGLOBIN 12.5 g/dl (13.5-18.0); LYMPH # 4.4 (1.2-3.4); LYMPH % 17.4 % (20.0-51.0); MEAN CELL VOLUME 108 fl (80.0-100.0); MEAN CORPUSCULAR HEMOGLOBIN 33 pg (27.0-31.0); MEAN CORPUSCULAR HGB CONC 30 g/dl (33.0-37.0); MEAN PLATELET VOLUME 11.2 fl (7.4-10.4); MONO # 1.5 (0.1-0.6); MONO % 5.8 % (1.7-9.3); PLATELET COUNT 173 K/mm3 (130-400); REDCELL DISTRIBUTION WIDTH-CV 17.1 % (11.5-14.5)
[2021-01-16 04:52] LABS: ALBUMIN 2.9 gm/dL (3.5-5.0); BILIRUBIN,TOTAL 2.2 mg/dL (0.0-1.0); CREATININE, serum 4.77 (0.66-1.25); TOTAL PROTEIN 5.3 gm/dL (6.4-8.2)
[2021-01-16 04:54] LABS: POTASSIUM 6.5 mmol/L (3.4-5.0)
[2021-01-16 05:00] LABS: ANISOCYTOSIS 1+; BAND 4 % (0-10); HYPOCHROMIA 3+; LYMPHOCYTE 21 % (20.0-51.0); METAMYELOCYTE 1 % (0-0); NEUTROPHILS 70 % (42.0-75.2); NUCLEATED RED BLOOD CELL 1 (0-6); PLATELET ESTIMATE NORMAL (NORMAL)
[2021-01-16 06:09] LABS: ARTERIAL BLOOD GAS pH 7.04 (7.35-7.45)
[2021-01-16 06:10] LABS: ARTERIAL BLD GAS O2 SATURATION 90.5 % (92-100); ARTERIAL BLOOD GAS BASE EXCESS -14.2 (-2-2); ARTERIAL BLOOD GAS HCO3 17.7 meq/L (22-26)
--- NOTE | 2021-01-16 07:18 | NUR ---
Report given to PATRICIO Mares.
--- NOTE | 2021-01-16 08:37 | NUR ---
PT remains intubated this am with mechanical ventilation. PT does not open eyes or move extremties to painful stimuli. PT does beging have increased respirations during assessment. PT is tachycardic and hypotensive. Levophed titrated per order. Medications and lines confirmed. PT is on continuous ICU monitoring.
--- NOTE | 2021-01-16 09:47 | NUR ---
pt BREATHING 48 BREATHS A MINUTE. PROPOFOL TITRATED UP PE EMAR
[2021-01-16 14:59] LABS: CREATININE, serum 4.21 (0.66-1.25); POTASSIUM 4.7 mmol/L (3.4-5.0)
--- NOTE | 2021-01-16 15:23 | NUR ---
PATIENT TOLERATED HIS 1ST HD TX WITH 100 ML FLUID REMOVAL DUE TO TACHYCARDIA & MAXIUM PRESSORS INFUSING. NEXT HD TX PENDING LABS.
--- NOTE | 2021-01-16 16:17 | NUR ---
Dialysis started at 1308, PT BP drops to 78/45. Vasopressin is increased per titration parameters as is levophed. DR. Silverio notified of PTS status by PATRICIO Cardenas. Orders to increase PEEP, to increase levophed as needed and to start an epinephrine drip if needed. Pt eventually maxed on vasopressen and levhophed. PTs called in to visit patient durnig dialysis due to patient change.
--- NOTE | 2021-01-16 18:13 | NUR ---
Acting Plasterer Apprentice on duty, call received from ICU nurse that pt was expiring. Confirmed with 2nd RN at 1808. Hospitalist on duty Keyla Pruett in to see pt. called and notified and on the way, per Anai Director of ICU okay to have and son visit and say goodbye. [facility] called and they have released the body at this time case referrel #[id number].
--- NOTE | 2021-01-16 18:19 | NUR ---
1758- PT HR dropped into 60s. Peripheral pulses were felt at this time. 1800- Manual BP attempted, unable to get a read. 1803- peripheral pulses absent, MIGEL Ramires notified. 1805- Carotid pulse still felt at this time. 1808- Carotid pulses absent, heart sounds absent. Confirmed by two RNs. MIGEL Ramires in to confirm. Time of .
--- NOTE | 2021-01-16 18:35 | NUR ---
RT WAS CALLED TO ROOM AT 1800 TO POWER THE VENT OFF. RN CALLED TIME OF WITH PA AT BEDSIDE. PATIENT WAS EXTUBATED AT THIS TIME.
--- NOTE | 2021-01-16 20:50 | NUR ---
home arrives to room at 2034; departs with patient at 2047. Personal belongings sent home with family.
[2021-01-16 22:21] LABS: HEPATITIS B SURFACE ANTIBODY <2.0 (()); HEPATITIS B SURFACE ANTIGEN Negative (Negative); HEPATITIS C VIRUS ANTIBODY Negative (Negative)
== END 2021-01-16 20:48 | disposition expired | DRG 208 ==
LOC: COL.ER 10:01 → ICU 10:49
PROVIDERS: Emergency Medicine; Internal Medicine Critical Care Medicine; Internal Medicine Nephrology; Internal Medicine Sleep Medicine; Student in an Organized Health Care Education/Training Program; ADMIT Student in an Organized Health Care Education/Training Program
PROC: 02HV33Z Insertion of Infusion Device into Superior Vena Cava, Percutaneous Approach (ICD-10-PCS; principal; 2021-01-14)
PROC: 5A1945Z Respiratory Ventilation, 24-96 Consecutive Hours (ICD-10-PCS; 2021-01-14)
PROC: 0BH17EZ Insertion of Endotracheal Airway into Trachea, Via Natural or Artificial Opening (ICD-10-PCS; 2021-01-14)
DX: U07.1 COVID-19 (principal); J12.82 Pneumonia due to coronavirus disease 2019; J96.01 Acute respiratory failure with hypoxia; N17.9 Acute kidney failure, unspecified; J44.0 Chronic obstructive pulmonary disease with (acute) lower respiratory infection; Z68.41 Body mass index [BMI] 40.0-44.9, adult; C91.10 Chronic lymphocytic leukemia of B-cell type not having achieved remission; E66.9 Obesity, unspecified; N40.0 Benign prostatic hyperplasia without lower urinary tract symptoms; K21.9 Gastro-esophageal reflux disease without esophagitis; M81.0 Age-related osteoporosis without current pathological fracture; T38.0X5A Adverse effect of glucocorticoids and synthetic analogues, initial encounter; F41.8 Other specified anxiety disorders; E87.5 Hyperkalemia; M45.9 Ankylosing spondylitis of unspecified sites in spine; Z85.118 Personal history of other malignant neoplasm of bronchus and lung; Z87.891 Personal history of nicotine dependence
CPT/HCPCS: 99223-AI; 99233-AI; A4314; C9113; J0171; J0330; J0456; J0610; J0692; J1100; J1630; J1644; J1650; J1652; J1815; J2060; J2250; J2270; J2704; J3010; J3370; J7030; J7040; J7050; J7060